=== PATIENT | male | born 1995 | race Caucasian/White ===

== ENCOUNTER 2016-03-15 16:11 | Inpatient (IN) | payer OTHER ==
[~2016-03-15] VITALS: Ht 172.7 cm; Wt 70.0 kg
--- NOTE | 2016-03-15 17:20 | NUR ---
Nurses Admission Note 20 year old voluntary male admitted from [facility] with depression and suicidal ideations. Patients' mother stated she found a suicidal diary in patients apartment. Patient has a history of a TBI for years ago with increasing anger and depression. Mother reported that patient tried to jump out of the car on her way here. Patient initially presented cooperative but angry when informed that his cell phone needed to be secured. Patient signed admission paperwork. He denied thoughts of self harm. He admitted to banging his head when frustrated. Patient denied previous hospitalization,suicidal attempts. He spoke multiple times with his mother on the phone and became increasingly agitated and hostile yelling loudly at film writer. Patient was informed that he was voluntary and could possibly sign out after the physician was notified. The physician recommended evaluation from [facility]. Will continue to maintain q 15min. checks for safety and support,await [facility] determination. Addendum: 03/15/16 at 2024 by ARPIT WALTER RN Nurses Discharge Patient discharged home with his mother and grandmother and denied any thoughts of self harm. Patient does not meet [facility] criteria. Patient received his cell phone and was dressed with the clothing that his mother brought.
[2016-03-15] MEDS ORDERED: diphenhydrAMINE 50 mg Capsule PO PRN (18:15)
[2016-03-15] MEDS ORDERED: Benzocaine-Menthol Lozenge 2/Pkg PO PRN (18:15)
[2016-03-15] MEDS ORDERED: LORazepam 1 mg Tablet PO PRN ×2 (18:15)
[2016-03-15] MEDS ORDERED: Alum-Mag Hydrox-Simeth 30 mL Suspension PO PRN (18:15)
[2016-03-15] MEDS ORDERED: Magnesium Hydroxide 10 mL Oral Concentration PO PRN (18:15)
[2016-03-15] MEDS ORDERED: AMPH10CA (19:31)
--- NOTE | 2016-04-19 23:57 | HP ---
[address] [address] HISTORY AND PHYSICAL PATIENT: PATTIE HUERTA : 1995 MR#: [id number] ADMIT: 03/15/2016 JOB ID: [id number] IDENTIFICATION: The patient is a young man who initially had requested voluntary admission to our unit for suicidal ideation. However, when he arrived to our unit, he immediately requested discharge. A [facility] evaluation was called and the patient was evaluated. The finding was that the patient was not detainable. The patient refused to wait for me to come evaluate him, and was discharged against medical advice at 8:25 p.m.
== END 2016-03-15 20:25 | disposition left against medical advice (07) | DRG 880 ==
LOC: MHC 17:38
PROVIDERS: ADMIT Psychiatry & Neurology Psychiatry; ATTEND Psychiatry & Neurology Psychiatry
DX: R45.851 Suicidal ideations (principal); Z91.19 Patient's noncompliance with other medical treatment and regimen